=== PATIENT | male | born 1965 | race Caucasian/White ===

== ENCOUNTER 2017-12-05 16:08 | Observation (INO) | payer BC, OTHER ==
[~2017-12-05] VITALS: Ht 188 cm; Wt 115.0 kg
[2017-12-05] VITALS (7 sets, daily range): BP systolic 111–137; BP diastolic 69–82; PULSE 64–77; RESP 16–18; TEMP 97.6–98.1; O2SAT 97–99
[~2017-12-05 16:08] MED LIST: ASPI-516 CHEW; ATOR40TA16 PO; DAPA1TAB3 PO; DIABETIC SHOES; FURO1TAB62 PO; GABA300C5 PO; GEMF600T PO; GLUC1KIT IM; LISI-519 PO; METF1000 PO; NAPR-855 PO; NOVOINJ2 SQ; ONETTES4; VENTAER INH
[2017-12-05] MEDS ORDERED: ACETAMINOPHEN 500 MG CPLT PO ONE (18:15)
[2017-12-05] MEDS ORDERED: ASPIRIN 81 MG CHEW TAB PO ONE (18:15)
[2017-12-05] MEDS ORDERED: SODIUM CHLORIDE 0.9% FLUSH 10 ML FLUSH IVF PRN (18:15)
[2017-12-05] MEDS ORDERED: SODIUM CHLORID 0.9% 500 ML INJ 500 ML IV ONE (18:15)
[2017-12-05] MEDS ORDERED: NITROGLYCERIN 0.4 MG SL 25 TABS/BTL SL ONE (18:15)
[2017-12-05] MEDS ORDERED: NOVOLOGMXP SQ (18:22)
[2017-12-05] MEDS ORDERED: NOVOLOGP2 SQ (18:22)
--- NOTE | 2017-12-05 18:27 | PD ---
HPI Chief Complaint: Chest Pain Time Seen by Provider: 18:04 Travel History International Travel<30 days: No Contact w/Intl Traveler<30days: No Traveled to known affect area: No History of Present Illness HPI 52-year-old male with history of diabetes and hyperlipidemia presents to the emergency department complaining of midsternal chest pain that radiates to the right arm since approximately 2 PM this afternoon. Says he also developed a diffuse headache rated 6/10 in severity. Says he felt "warm and sweaty" when this chest pain started as well. Patient describes the pain as a dull ache, constant without palliative or provocative factors. States that he has not been active since the onset because of the chest pain. States that he has had occasional shortness of breath associated with this chest pain denies nausea or vomiting. 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 His last follow- up was August 2017 where he had an echocardiogram. Says he had a stress test approximately 2 years ago that demonstrated abnormal valves. Denies numbness, tingling, or weakness. PFSH Past Medical History Heart Rhythm Problems: No Cancer: No Cardiac Catheterization: No Cardiovascular Problems: Yes High Cholesterol: Yes Congestive Heart Failure: No Diabetes: Yes Patient Takes Glucophage: Yes Endocrine: Yes Genitourinary: No Heparin Induced Thrombocytopen: No Hypertension: No Immune Disorder: No Implanted Vascular Access Dvce: No Musculoskeletal: No Neurologic: No Psychiatric: No Reproductive: No Respiratory: No Immunizations Current: Yes Pneumonia: Yes Triglycerides - High: Yes Tetanus Vaccination: > 5 Years Influenza Vaccination: No Past Surgical History Coronary Artery Bypass Graft: No Oral Surgery: Yes Family History Family Myocardial Infarction: Yes Family Hypercholesterolemia: Yes (BROTHER) Social History Alcohol Use: No (QUIT 1991) Tobacco Use: No (QUIT 1980) Substance Use: No Allergies-Medications (Allergen,Severity, Reaction): Coded Allergies: penicillin G (Unverified Allergy, Intermediate, Hives, 12/05/17) Hives all over his body Reported Meds & Prescriptions Reported Meds & Active Scripts Active Atorvastatin (Atorvastatin Calcium) 40 Mg Tab 40 Mg PO HS Gemfibrozil 600 Mg Tab 600 Mg PO BIDAC Take 30 minutes prior to breakfast and dinner. Metformin (Metformin HCl) 1,000 Mg Tab 1,000 Mg PO BIDPC With meals Lisinopril 5 Mg Tab 5 Mg PO DAILY Lasix (Furosemide) 20 Mg Tab 20 Mg PO DAILY PRN Reported Novolog Inj (Insulin Aspart) 1,000 Unit/10 Ml Vial 42 Units SQ DAILY Novolog Mix 70-30 Inj (Insulin Aspart Prota 70%/Aspart 30%) 1,000 Unit/10 Ml Vial 30 Units SQ DAILY Ventolin Hfa 18 GM Inh (Albuterol Sulfate) 90 Mcg/Act Aer 1 Puff INH Q4H PRN Aspirin 81 Mg Chew 81 Mg CHEW DAILY Glucagon Emergency Inj Kit (Glucagon (Rdna) Inj Kit) 1 Mg Kit 1 Mg IM ONCE PRN Gabapentin 300 Mg Cap 300 Mg PO DAILY Review of Systems Except as stated in HPI: all other systems reviewed are Neg Physical Exam Narrative GENERAL: Well-developed, well-nourished in no apparent distress SKIN: Focused skin assessment warm/dry. HEAD: Atraumatic. Normocephalic. EYES: Pupils equal and round. No scleral icterus. No injection or drainage. ENT: No nasal bleeding or discharge. Mucous membranes pink and moist. NECK: Trachea midline. No JVD. CARDIOVASCULAR: Regular rate and rhythm. No murmur appreciated. RESPIRATORY: No accessory muscle use. Clear to auscultation. Breath sounds equal bilaterally. GASTROINTESTINAL: Abdomen soft, non-tender, nondistended. Hepatic and splenic margins not palpable. MUSCULOSKELETAL: No obvious deformities. No clubbing. No cyanosis. No edema. NEUROLOGICAL: Awake and alert. No obvious cranial nerve deficits. Motor grossly within normal limits. Normal speech. PSYCHIATRIC: Appropriate mood and affect; insight and judgment normal. Data Data Last Documented VS Vital Signs Date Time Temp Pulse Resp B/P (MAP) Pulse Ox O2 Delivery O2 Flow Rate FiO2 12/05/17 19:30 64 18 111/69 (83) 99 Room Air 12/05/17 16:19 98.1 Orders Orders Electrocardiogram (12/05/17 ) Ckmb (Isoenzyme) Profile (12/05/17 18:14) Complete Blood Count With Diff (12/05/17 18:14) Comprehensive Metabolic Panel (12/05/17 18:14) Magnesium (Mg) (12/05/17 18:14) Prothrombin Time / Inr (Pt) (12/05/17 18:14) Act Partial Throm Time (Ptt) (12/05/17 18:14) Troponin I (12/05/17 18:14) Ecg Monitoring (12/05/17 18:14) Bilateral Bp Monitoring (12/05/17 18:14) Iv Access Insert/Monitor (12/05/17 18:14) Oximetry (12/05/17 18:14) Aspirin Chew (Aspirin Chew) (12/05/17 18:15) Sodium Chloride 0.9% Flush (Ns Flush) (12/05/17 18:15) Nitroglycerin Sl (Nitrostat Sl) (12/05/17 18:15) Sodium Chlorid 0.9% 500 Ml Inj (Ns 500 M (12/05/17 18:15) Chest, Pa & Lat (12/05/17 18:14) Acetaminophen (Tylenol) (12/05/17 18:15) Ibuprofen (Motrin) (12/05/17 20:15) Activity Bed Rest With Brp (12/05/17 20:06) Vital Signs (Adult) Q4H (12/05/17 20:06) Cardiac Rhythm .As Directed (12/05/17 20:06) Notify Dr: Other .PRN (12/05/17 20:06) Notify DrSri Parameters (12/05/17 20:06) Resp Oxygen Nasal Cannula (12/05/17 ) Ckmb (Isoenzyme) Profile (12/05/17 21:20) Ckmb (Isoenzyme) Profile (12/06/17 00:20) Troponin I (12/05/17 21:20) Troponin I (12/06/17 00:20) Electrocardiogram (12/05/17 21:20) Electrocardiogram (12/06/17 00:20) ^ Obtain (12/05/17 20:06) Airplane Flight Attendant Supervisor / Telemetry CRISTIAN.Q8H (12/05/17 20:06) Admit Order (Ed Use Only) (12/05/17 20:06) Labs Laboratory Tests Test 12/05/17 18:20 White Blood Count 6.1 TH/MM3 Red Blood Count 4.77 MIL/MM3 Hemoglobin 14.5 GM/DL Hematocrit 42.7 % Mean Corpuscular Volume 89.4 FL Mean Corpuscular Hemoglobin 30.5 PG Mean Corpuscular Hemoglobin Concent 34.1 % Red Cell Distribution Width 13.1 % Platelet Count 226 TH/MM3 Mean Platelet Volume 9.5 FL Neutrophils (%) (Auto) 58.3 % Lymphocytes (%) (Auto) 29.2 % Monocytes (%) (Auto) 9.4 % Eosinophils (%) (Auto) 2.6 % Basophils (%) (Auto) 0.5 % Neutrophils # (Auto) 3.6 TH/MM3 Lymphocytes # (Auto) 1.8 TH/MM3 Monocytes # (Auto) 0.6 TH/MM3 Eosinophils # (Auto) 0.2 TH/MM3 Basophils # (Auto) 0.0 TH/MM3 CBC Comment DIFF FINAL Differential Comment Prothrombin Time 10.3 SEC Prothromb Time International Ratio 1.0 RATIO Activated Partial Thromboplast Time 23.8 SEC Blood Urea Nitrogen 16 MG/DL Creatinine 1.00 MG/DL Random Glucose 140 MG/DL Total Protein 7.7 GM/DL Albumin 4.0 GM/DL Calcium Level 9.2 MG/DL Magnesium Level 1.9 MG/DL Alkaline Phosphatase 52 U/L Aspartate Amino Transf (AST/SGOT) 21 U/L Alanine Aminotransferase (ALT/SGPT) 43 U/L Total Bilirubin 0.6 MG/DL Sodium Level 138 MEQ/L Potassium Level 4.0 MEQ/L Chloride Level 105 MEQ/L Carbon Dioxide Level 25.6 MEQ/L Anion Gap 7 MEQ/L Estimat Glomerular Filtration Rate 78 ML/MIN Total Creatine Kinase 74 U/L Troponin I LESS THAN 0.02 NG/ML MDM Medical Decision Making Medical Screen Exam Complete: Yes Emergency Medical Condition: Yes Differential Diagnosis NSTEMI, angina, unstable angina, atypical chest pain Narrative Course 52y male presents to the ED c/o chest pain that started approximately 2p. Says he was sitting when this pain started. Patient says he is also developed a headache. Denies numbness or tingling, weakness. Vital signs are stable. EKG shows sinus rhythm at a rate of 68. Aspirin, nitro, and Tylenol administered. Patient says his headache has worsened after administration of nitro. CBC & BMP Diagram 12/05/17 18:20 Total Protein 7.7, Albumin 4.0, Calcium Level 9.2, Magnesium Level 1.9, Alkaline Phosphatase 52, Aspartate Amino Transf (AST/SGOT) 21, Alanine Aminotransferase (ALT/SGPT) 43, Total Bilirubin 0.6 Cardiac enzymes negative. Ordered ibuprofen 600 mg for patient's headache. Patient be admitted to the chest pain center with unstable angina, rule out ACS. Patient does have risk factors of diabetes, hyperlipidemia. He also has an extensive family history of heart disease. Once again he does follow cardiology and his last visit was in August 2017. Says he had an echocardiogram in August which demonstrated abnormal heart valves, according to pt. Diagnosis Primary Impression: Unstable angina Admitting Information Admitting Physician Requests: Observation Condition: Stable Nickie Canales Dec 05, 2017 18:27
--- NOTE | 2017-12-05 19:11 | RADRPT ---
EXAM DATE/TIME: 12/05/2017 18:31 [facility] COMPARISON: No previous studies available for comparison. INDICATIONS : Chest pain. MEDICAL HISTORY : None. SURGICAL HISTORY : None. ENCOUNTER: Initial ACUITY: 1 day PAIN SCORE: 7/10 LOCATION: Bilateral chest FINDINGS: PA and lateral views of the chest demonstrate the lungs to be symmetrically aerated without evidence of mass, infiltrate or effusion. The cardiomediastinal contours are unremarkable. Osseous structure s are intact. CONCLUSION: No acute disease. Asael Valdez MD FACR on December 05, 2017 at 19:08 Board Certified Radiologist. This report was verified electronically.
[2017-12-05 19:14] LABS: AUTOMATED NEUTROPHIL # 3.6 TH/MM3 (1.8-7.7); BASOPHIL % 0.5 % (0.0-2.0); EOSINOPHIL # 0.2 TH/MM3 (0-0.4); EOSINOPHIL % 2.6 % (0.0-4.0); HEMATOCRIT 42.7 % (39.0-51.0); HEMOGLOBIN 14.5 GM/DL (13.0-17.0); LYMPH % 29.2 % (9.0-44.0); LYMPHOCYTE # 1.8 TH/MM3 (1.0-4.8); MEAN CELL VOLUME 89.4 FL (80.0-100.0); MEAN CORPUSCULAR HEMOGLOBIN 30.5 PG (27.0-34.0); MEAN CORPUSCULAR HGB CONC 34.1 % (32.0-36.0); MEAN PLATELET VOLUME 9.5 FL (7.0-11.0); MONO % 9.4 % (0.0-8.0); MONOCYTE # 0.6 TH/MM3 (0-0.9); NEUT % 58.3 % (16.0-70.0); PLATELET COUNT 226 TH/MM3 (150-450); RED BLOOD COUNT 4.77 MIL/MM3 (4.50-5.90); RED CELL DISTRIBUTION WIDTH 13.1 % (11.6-17.2); WHITE BLOOD COUNT 6.1 TH/MM3 (4.0-11.0)
[2017-12-05 19:17] LABS: PROTHROMBIN TIME - PATIENT 10.3 SEC (9.8-11.6)
[2017-12-05 19:45] LABS: AST (GOT) 21 U/L (15-37); BICARBONATE 25.6 MEQ/L (21.0-32.0); BLOOD UREA NITROGEN 16 MG/DL (7-18); CALCIUM 9.2 MG/DL (8.5-10.1); CHLORIDE 105 MEQ/L (98-107); GLOMERULAR FILTRATION RATE 78 ML/MIN (>89); GLUCOSE,RANDOM 140 MG/DL (74-106); MAGNESIUM 1.9 MG/DL (1.5-2.5); SODIUM (NA) 138 MEQ/L (136-145)
[2017-12-05 19:46] LABS: ALT (GPT) 43 U/L (12-78)
[2017-12-05 19:50] LABS: ALKALINE PHOSPHATASE 52 U/L (45-117); TOTAL BILIRUBIN ADULT 0.6 MG/DL (0.2-1.0); TOTAL PROTEIN 7.7 GM/DL (6.4-8.2); TROPONIN I LESS THAN 0.02 NG/ML (0.02-0.05)
[2017-12-05] MEDS ORDERED: IBUPROFEN 600 MG TAB PO ONE (20:15)
[2017-12-05 22:44] LABS: TROPONIN I LESS THAN 0.02 NG/ML (0.02-0.05)
[2017-12-06 00:39] VITALS: BP 115/72; PULSE 61; RESP 16; TEMP 97.7; O2SAT 98
[2017-12-06 01:00] LABS: TROPONIN I LESS THAN 0.02 NG/ML (0.02-0.05)
[2017-12-06 03:27] VITALS: BP 113/72; PULSE 69; RESP 18; TEMP 97.5; O2SAT 98
[2017-12-06 07:05] VITALS: PULSE 61
[2017-12-06 08:00] VITALS: BP 121/76; PULSE 60; RESP 18; TEMP 97.5; O2SAT 98
[2017-12-06] MEDS ORDERED: ACETAMINOPHEN 500 MG CPLT PO PRN (08:00)
[2017-12-06] MEDS ORDERED: ONDANSETRON HCL 4 MG/2 ML VIAL IV PUSH PRN (08:00)
[2017-12-06] MEDS ORDERED: NITROGLYCERIN 0.4 MG SL 25 TABS/BTL SL PRN (08:00)
[2017-12-06] MEDS ORDERED: SODIUM CHLORIDE 0.9% FLUSH 10 ML FLUSH IV FLUSH SCH (09:00)
[2017-12-06] MEDS ORDERED: ASPIRIN 325 MG TAB PO SCH (09:00)
--- NOTE | 2017-12-06 09:58 | HHI.HP ---
HPI Primary Care Physician Unknown Chief Complaint Chest pain History of Present Illness 52 year old male with history of insulin dependent type II diabetes and hyperlipidemia presents to ER for further evaluation of chest pain. Onset yesterday 2pm. Location upper chest. Characterized as "dull pain." Severity 7/ 10. Radiation to right shoulder and arm until right elbow. Duration constant. No associated symptoms of nausea, vomiting, dyspnea, or diaphorases. No known precipitating or relieving factors. Endorses chest discomfort in the past, unsure if similar to presenting symptoms. Review of Systems General: No fatigue,weakness, fever, chills, recent illness, or change in appetite. Has been in his general state of health. HEENT: No ADAME, no vision changes, no nasal congestion or drainage, no dysphasia CV: Continues to have chest pain as stated above. Current pain scale rated at 3 /10. RESP: No SOB, cough, wheeze, or recent URI. GI: No nausea, vomiting, bowel changes, diarrhea, constipation, pain, distention , melena, or blood in the stool. : No dysuria, urgency, frequency EXT: No lower leg edema, bilateral lower extremity neuropathy. MS: No discomfort, injury, trauma, or change in ROM NEURO: No dizziness, difficulty with balance, LOC, motor/sensory deficits PSYCH: No anxiety, depression SKIN: No rashes, no concerning lesions Past Family Social History Allergies: Coded Allergies: penicillin G (Unverified Allergy, Intermediate, Hives, 12/05/17) Hives all over his body Past Medical History Insulin-dependent type 2 diabetic, hyperlipidemia, chronic left shoulder pain, neuropathy, x2 left ankle fracture, x2 right ankle fracture Reported Medications Reported Meds & Active Scripts Active Atorvastatin (Atorvastatin Calcium) 40 Mg Tab 40 Mg PO HS Gemfibrozil 600 Mg Tab 600 Mg PO BIDAC Take 30 minutes prior to breakfast and dinner. Metformin (Metformin HCl) 1,000 Mg Tab 1,000 Mg PO BIDPC With meals Lisinopril 5 Mg Tab 5 Mg PO DAILY Lasix (Furosemide) 20 Mg Tab 20 Mg PO DAILY PRN Reported Novolog Inj (Insulin Aspart) 1,000 Unit/10 Ml Vial 42 Units SQ DAILY Novolog Mix 70-30 Inj (Insulin Aspart Prota 70%/Aspart 30%) 1,000 Unit/10 Ml Vial 30 Units SQ DAILY Ventolin Hfa 18 GM Inh (Albuterol Sulfate) 90 Mcg/Act Aer 1 Puff INH Q4H PRN Aspirin 81 Mg Chew 81 Mg CHEW DAILY Glucagon Emergency Inj Kit (Glucagon (Rdna) Inj Kit) 1 Mg Kit 1 Mg IM ONCE PRN Gabapentin 300 Mg Cap 300 Mg PO DAILY Active Ordered Medications Current Medications Medications (Trade) Dose Ordered Sig/Justyn Route Start Time Stop Time Status Last Admin (NS Flush) 2 ml UNSCH PRN IVF 12/05/17 18:15 12/06/17 07:58 (NS Flush) 2 ml BID IV FLUSH 12/06/17 09:00 (Tylenol) 500 mg Q4H PRN PO 12/06/17 08:00 (Zofran Inj) 4 mg Q6H PRN IV PUSH 12/06/17 08:00 (Nitrostat Sl) 0.4 mg Q5M PRN SL 12/06/17 08:00 (Aspirin) 325 mg DAILY PO 12/06/17 09:00 12/06/17 08:37 Family History Positive for early onset cardiovascular disease. Father age 44 from heart attack, Prior to his required CABG 2 Social History Known diabetes and hyperlipidemia. No known coronary artery disease for hypertension. Former smoker quitting in 1980. Denies any alcohol use. . Endorses sedentary lifestyle. Past cardiac testing 04/18/16 Lexiscan-unremarkable. EF 67% 11/19/15 Lexiscan-Conclusion Questionable reperfusion throughout the myocardium at rest when compared to stress without evidence of focal fixed or reversible perfusion abnormality. Consideration should be given to CTA of the coronary arteries to exclude significant coronary disease. Normal wall motion and ejection fraction. Physical Exam Vital Signs Vital Signs Date Time Temp Pulse Resp B/P (MAP) Pulse Ox O2 Delivery O2 Flow Rate FiO2 12/06/17 08:00 97.5 60 18 121/76 (91) 98 12/06/17 07:05 61 12/06/17 03:27 97.5 69 18 113/72 (86) 98 12/06/17 00:39 97.7 61 16 115/72 (86) 98 12/05/17 21:22 69 12/05/17 20:54 97.6 64 16 116/75 (89) 99 12/05/17 20:54 12/05/17 20:27 98 Nasal Cannula 2.00 12/05/17 19:30 64 18 111/69 (83) 99 Room Air 12/05/17 19:30 64 14 2 Nasal Cannula 12/05/17 18:25 68 18 119/75 (90) 98 Room Air 12/05/17 18:25 68 18 119/76 (90) 98 Room Air 12/05/17 18:13 Room Air 12/05/17 18:01 71 17 115/73 (87) 97 Room Air 12/05/17 18:01 77 17 115/73 (87) 99 Room Air 12/05/17 16:19 98.1 73 16 137/82 (100) 97 Physical Exam GENERAL: Alert WN, WD, NAD, pleasant, male HEAD: NC, AT EYES: Sclera clear, conjunctiva without injection ENT: Mucous membranes pink and moist NECK: Supple, no masses, trachea midline CV: RRR, without murmur, rub, gallop, no JVD, S1-S2 no S3-S4. No carotid bruits. RESP: Clear lungs throughout bilateral, no crackles, wheeze, rhonchi, symmetrical chest rise, nonlabored, able to speak in full sentences ABD: Soft, NT, ND, no masses, positive bowel tones EXT: Pulses +2x4, no dependent edema MS: Normal tone x4 extremities, nontender, no obvious deformities, full range of motion NEURO: CN II through CN XII grossly intact, motor strength 5/5 PSYCH: A+O x3, pleasant affect, appropriate speech, mood, insight and judgment SKIN: Normal turgor, normal texture, no lesions, no rashes, brisk cap refill, even hair distribution Laboratory Laboratory Tests Test 12/05/17 18:20 12/05/17 21:30 12/06/17 00:28 White Blood Count 6.1 Red Blood Count 4.77 Hemoglobin 14.5 Hematocrit 42.7 Mean Corpuscular Volume 89.4 Mean Corpuscular Hemoglobin 30.5 Mean Corpuscular Hemoglobin Concent 34.1 Red Cell Distribution Width 13.1 Platelet Count 226 Mean Platelet Volume 9.5 Neutrophils (%) (Auto) 58.3 Lymphocytes (%) (Auto) 29.2 Monocytes (%) (Auto) 9.4 Eosinophils (%) (Auto) 2.6 Basophils (%) (Auto) 0.5 Neutrophils # (Auto) 3.6 Lymphocytes # (Auto) 1.8 Monocytes # (Auto) 0.6 Eosinophils # (Auto) 0.2 Basophils # (Auto) 0.0 CBC Comment DIFF FINAL Differential Comment Prothrombin Time 10.3 Prothromb Time International Ratio 1.0 Activated Partial Thromboplast Time 23.8 Blood Urea Nitrogen 16 Creatinine 1.00 Random Glucose 140 Total Protein 7.7 Albumin 4.0 Calcium Level 9.2 Magnesium Level 1.9 Alkaline Phosphatase 52 Aspartate Amino Transf (AST/SGOT) 21 Alanine Aminotransferase (ALT/SGPT) 43 Total Bilirubin 0.6 Sodium Level 138 Potassium Level 4.0 Chloride Level 105 Carbon Dioxide Level 25.6 Anion Gap 7 Estimat Glomerular Filtration Rate 78 Total Creatine Kinase 74 69 57 Troponin I LESS THAN 0.02 LESS THAN 0.02 LESS THAN 0.02 Result Diagram: 12/05/17181912/05/171819 Imaging Last 48 hours Impressions Myocardial Perfusion Scan Nuc Med 12/06/17 0000 Signed Impressions: Service Date/Time: Wednesday, December 06, 2017 11:45 - CONCLUSION: No evidence of fixed or reversible perfusion abnormalities. Well-maintained wall motion and normal ejection fraction. RISK CATEGORY: Low (<1%% Annual Mortality Rate) Maurice Martin MD Chest X-Ray 12/05/171813 Signed Impressions: Service Date/Time: Tuesday, December 05, 2017 18:31 - CONCLUSION: No acute disease. Asael Valdez MD FACR Course EKG NSR, no st t changes Caprini VTE Risk Assessment Caprini VTE Risk Assessment: No/Low Risk (score <= 1) Caprini Risk Assessment Model Point Value = 1 Point Value = 2 Point Value = 3 Point Value = 5 Age 41-60 Minor surgery BMI > 25 kg/m2 Swollen legs Varicose veins or History of unexplained or recurrent spontaneous Oral contraceptives or hormone replacement Sepsis (< 1 month) Serious lung disease, including pneumonia (< 1 month) Abnormal pulmonary function Acute myocardial infarction Congestive heart failure (< 1 month) History of inflammatory bowel disease Medical patient at bed rest Age 61-74 Arthroscopic surgery Major open surgery (> 45 min) Laparoscopic surgery (> 45 min) Malignancy Confined to bed (> 72 hours) Immobilizing plaster cast Central venous access Age >= 75 History of VTE Family history of VTE Factor V Leiden Prothrombin [id number] Lupus anticoagulant Anticardiolipin antibodies Elevated serum homocysteine Heparin-induced thrombocytopenia Other congenital or acquired thrombophilia Stroke (< 1 month) Elective arthroplasty Hip, pelvis, or leg fracture Acute spinal cord injury (< 1 month) Prophylaxis Regimen Total Risk Factor Score Risk Level Prophylaxis Regimen 0-1 Low Early ambulation 2 Moderate Order ONE of the following: *Sequential Compression Device (SCD) *Heparin 5000 units SQ BID 3-4 Higher Order ONE of the following medications: *Heparin 5000 units SQ TID *Enoxaparin/Lovenox 40 mg SQ daily (WT < 150 kg, CrCl > 30 mL/min) *Enoxaparin/Lovenox 30 mg SQ daily (WT < 150 kg, CrCl > 10-29 mL/min) *Enoxaparin/Lovenox 30 mg SQ BID (WT < 150 kg, CrCl > 30 mL/min) AND/OR *Sequential Compression Device (SCD) 5 or more Highest Order ONE of the following medications: *Heparin 5000 units SQ TID (Preferred with Epidurals) *Enoxaparin/Lovenox 40 mg SQ daily (WT < 150 kg, CrCl > 30 mL/min) *Enoxaparin/Lovenox 30 mg SQ daily (WT < 150 kg, CrCl > 10-29 mL/min) *Enoxaparin/Lovenox 30 mg SQ BID (WT < 150 kg, CrCl > 30 mL/min) AND *Sequential Compression Device (SCD) Assessment and Plan Assessment and Plan #1 Atypical chest pain-admitted to chest pain center. Ruled out with 3 sets of EKGs and cardiac enzymes. Seen and evaluated by Dr. Burton. Proceed with Anjel this am. If unremarkable, plans to be discharged home with follow-up with primary care provider. Patient agreeable plan of care. #2 History of type II diabetes-hold Metformin, begin low dose SSI #3 History of hyperlipidemia-continue atorvastatin Kaylee Matthews Dec 06, 2017 09:58
[2017-12-06] MEDS ORDERED: DEXTROSE 50% IN WATER 50 ML VIAL(D50) IV PUSH PRN (10:30)
[2017-12-06] MEDS ORDERED: GLUCAGON 1 MG/ML VIAL OTHER PRN (10:30)
[2017-12-06] MEDS ORDERED: LISINOPRIL 5 MG TAB PO SCH (11:00)
[2017-12-06] MEDS ORDERED: GABAPENTIN 300 MG CAP PO SCH (11:00)
[2017-12-06] MEDS ORDERED: REGADENOSON INJ 0.4 MG/5 ML SYR ONE (11:54)
[2017-12-06] MEDS ORDERED: INSULIN ASPART SUPPLEMENTAL SCALE SQ SCH (12:00)
--- NOTE | 2017-12-06 12:38 | EKG ---
Date Performed: 12/05/2017 Time Performed: 22:21:10 PTAGE: 52 years EKG: Sinus rhythm NORMAL ECG PREVIOUS TRACING : 12/05/2017 16.28 Since previous tracing, no significant change noted DOCTOR: Kenn Burton Interpretating Date/Time 12/06/2017 12:38:04
--- NOTE | 2017-12-06 12:38 | EKG ---
Date Performed: 12/05/2017 Time Performed: 23:43:08 PTAGE: 52 years EKG: Sinus rhythm NORMAL ECG PREVIOUS TRACING : 12/05/2017 22.21 Since previous tracing, no significant change noted DOCTOR: Kenn Burton Interpretating Date/Time 12/06/2017 12:37:32
--- NOTE | 2017-12-06 12:42 | EKG ---
Date Performed: 12/05/2017 Time Performed: 16:28:35 PTAGE: 52 years EKG: Sinus rhythm NORMAL ECG PREVIOUS TRACING : 04/17/2016 23.28 Since previous tracing, no significant change noted DOCTOR: Kenn Burton Interpretating Date/Time 12/06/2017 12:41:44
[2017-12-06 13:06] VITALS: BP 120/72; PULSE 68; RESP 18; O2SAT 96
[2017-12-06 13:21] VITALS: TEMP 97.6
--- NOTE | 2017-12-06 13:33 | RADRPT ---
EXAM DATE/TIME: 12/06/2017 11:45 [facility] COMPARISON: No previous studies available for comparison. INDICATIONS : Chest pain. Angina. DOSE: 35.0 mCi Tc99m Myoview at stress. 11.0 mCi Tc99m Myoview at rest. 0.4 mg Lexiscan STRESS SYMPTOMS: Shortness of breath. EJECTION FRACTION: 63% MEDICAL HISTORY : Hypertension. Hypercholesterolemia. Diabetes mellitus type 2. SURGICAL HISTORY : Rotator cuff, left. ENCOUNTER: Initial ACUITY: 2 days PAIN SCALE: 6/10 LOCATION: Bilateral chest TECHNIQUE: The patient underwent pharmacologic stress with infusion of prescribed dose. Continuous ECG tracing was monitored during stress. Gated SPECT imaging was performed after stress and conventional SPECT i maging was performed at rest. The examination was performed on a SPECT/CT scanner, both attenuation and non-corrected datasets were reviewed. FINDINGS: DISTRIBUTION: The maximum perfused segment at stress is in the anterior wall. PERFUSION STUDY: The pattern of perfusion at stress is within normal limits. GATED STUDY: There is intact wall motion and thickening without hypokinetic or dyskinetic segments. CONCLUSION: No evidence of fixed or reversible perfusion abnormalities. Well-maintained wall motion and normal ejection fraction. RISK CATEGORY: Low (<1% Annual Mortality Rate) Maurice Martin MD on December 06, 2017 at 13:30 Board Certified Radiologist. This report was verified electronically.
--- NOTE | 2017-12-06 13:45 | HHI.DCPOC ---
Discharge Care Plan Diagnosis: (1) Atypical chest pain (2) Diabetes mellitus with neuropathy (3) Mixed dyslipidemia Goals to Promote Your Health * To prevent worsening of your condition and complications * To maintain your health at the optimal level Directions to Meet Your Goals Take your medications as prescribed Follow your dietary instruction Follow activity as directed Keep your appointments as scheduled Take your immunizations and boosters as scheduled If your symptoms worsen call your PCP, if no PCP go to Urgent Care Center or Emergency Room Smoking is Dangerous to Your Health. Avoid second hand smoke Call the 24-hour hour crisis hotline for domestic abuse at Kaylee MatthewsP Dec 06, 2017 13:45
--- NOTE | 2017-12-06 15:38 | TR ---
Date Performed: 12/06/2017 Time Performed: 12:09:11 DOCTOR: Kenn Burton DRUG LIST: CLINICAL HISTORY: ANGINA REASON FOR TEST: REASON FOR ENDING: OBSERVATION: CONCLUSION: Lexiscan stress test was performed under standard four minute protocol. Radionuclid e was injected one minute prior to ending the test. No electrocardiographic abormalities were present to suggest ischemia. Nuclear imaging and interpretation are pending. COMMENTS:
[2017-12-06] MEDS ORDERED: ATORVASTATIN 40 MG TAB PO SCH (21:00)
== END 2017-12-06 18:34 | disposition home or self-care (01) ==
LOC: NEPC 16:08 → NEDA 20:09 → NEPFCDU 20:41
PROVIDERS: ADMIT Internal Medicine Interventional Cardiology; ATTEND Internal Medicine Interventional Cardiology
DX: I20.0 Unstable angina (principal); E11.40 Type 2 diabetes mellitus with diabetic neuropathy, unspecified; E78.2 Mixed hyperlipidemia; I10 Essential (primary) hypertension; Z79.4 Long term (current) use of insulin; Z82.49 Family history of ischemic heart disease and other diseases of the circulatory system; Z87.891 Personal history of nicotine dependence
CPT/HCPCS: 71046; 78452; 80053; 82550; 82948; 83735; 84484; 85025; 85610; 85730; 93005; 93017; 99285; A9502; G0378; J1815; J2785; J7040

== ENCOUNTER 2017-12-17 18:28 | Emergency (ER) | payer BC ==
[~2017-12-17] VITALS: Ht 188 cm; Wt 117.0 kg
[~2017-12-17 18:28] MED LIST changes: -DAPA1TAB3 PO; -DIABETIC SHOES; -NAPR-855 PO; -NOVOINJ2 SQ; +NOVOLOGMXP SQ; +NOVOLOGP2 SQ; -ONETTES4
[2017-12-17 18:46] VITALS: BP 137/86; PULSE 104; RESP 18; TEMP 98.2
--- NOTE | 2017-12-17 19:01 | PD ---
HPI Chief Complaint: Foreign Body Time Seen by Provider: 18:50 Travel History International Travel<30 days: No Contact w/Intl Traveler<30days: No Traveled to known affect area: No History of Present Illness HPI Type II diabetic on insulin presents emergency department with question of possible foreign body from an insulin needle in his anterior abdomen. Patient states he gives throughout this morning and felt that the needle was shorter than this was supposed to when he withdrew it. He is unsure which side he gave himself his insulin shot this morning. He has no specific areas of pain. He is just concerned that he may have a broken needle in his skin of the abdomen. He is allergic to penicillin. PFSH Past Medical History Heart Rhythm Problems: No Cancer: No Cardiac Catheterization: No Cardiovascular Problems: Yes High Cholesterol: Yes Congestive Heart Failure: No Diabetes: Yes Endocrine: Yes Genitourinary: No Heparin Induced Thrombocytopen: No Hypertension: No Immune Disorder: No Implanted Vascular Access Dvce: No Musculoskeletal: No Neurologic: No Psychiatric: No Reproductive: No Respiratory: No Immunizations Current: Yes Pneumonia: Yes Triglycerides - High: Yes Past Surgical History Coronary Artery Bypass Graft: No Oral Surgery: Yes Family History Family Hypercholesterolemia: Yes (BROTHER) Social History Alcohol Use: No (QUIT 1991) Tobacco Use: No (QUIT 1980) Substance Use: No Allergies-Medications (Allergen,Severity, Reaction): Coded Allergies: penicillin G (Unverified Allergy, Intermediate, Hives, 12/05/17) Hives all over his body Reported Meds & Prescriptions Reported Meds & Active Scripts Active Atorvastatin (Atorvastatin Calcium) 40 Mg Tab 40 Mg PO HS Gemfibrozil 600 Mg Tab 600 Mg PO BIDAC Take 30 minutes prior to breakfast and dinner. Metformin (Metformin HCl) 1,000 Mg Tab 1,000 Mg PO BIDPC With meals Lisinopril 5 Mg Tab 5 Mg PO DAILY Lasix (Furosemide) 20 Mg Tab 20 Mg PO DAILY PRN Reported Novolog Inj (Insulin Aspart) 1,000 Unit/10 Ml Vial 42 Units SQ DAILY Novolog Mix 70-30 Inj (Insulin Aspart Prota 70%/Aspart 30%) 1,000 Unit/10 Ml Vial 30 Units SQ DAILY Ventolin Hfa 18 GM Inh (Albuterol Sulfate) 90 Mcg/Act Aer 1 Puff INH Q4H PRN Aspirin 81 Mg Chew 81 Mg CHEW DAILY Glucagon Emergency Inj Kit (Glucagon (Rdna) Inj Kit) 1 Mg Kit 1 Mg IM ONCE PRN Gabapentin 300 Mg Cap 300 Mg PO DAILY Review of Systems Except as stated in HPI: all other systems reviewed are Neg General / Constitutional: No: Fever Eyes: No: Visual changes HENT: No: Headaches Cardiovascular: No: Chest Pain or Discomfort Respiratory: No: Shortness of Breath Gastrointestinal: No: Abdominal Pain Genitourinary: No: Dysuria Musculoskeletal: No: Pain Skin: No Rash Neurologic: No: Weakness Psychiatric: No: Depression Endocrine: No: Polydipsia Hematologic/Lymphatic: No: Easy Bruising Physical Exam Narrative GENERAL: Moderately obese male in no acute distress per SKIN: Warm and dry. Normal color. Normal turgor. No obvious areas of erythema to the anterior abdomen HEAD: Atraumatic. Normocephalic. EYES: Pupils equal and round. No scleral icterus. No injection or drainage. ENT: No nasal bleeding or discharge. Mucous membranes pink and moist. NECK: Trachea midline. Supple and nontender per CARDIOVASCULAR: Regular rate and rhythm. RESPIRATORY: No accessory muscle use. Clear to auscultation. Breath sounds equal bilaterally. GASTROINTESTINAL: Abdomen soft, non-tender, nondistended. Hepatic and splenic margins not palpable. No specific point tenderness. MUSCULOSKELETAL: Extremities without clubbing, cyanosis, or edema. No obvious deformities. NEUROLOGICAL: Awake and alert. No obvious cranial nerve deficits. Motor grossly within normal limits. Five out of 5 muscle strength in the arms and legs. Normal speech. PSYCHIATRIC: Appropriate mood and affect; insight and judgment normal. Data Data Last Documented VS Vital Signs Date Time Temp Pulse Resp B/P (MAP) Pulse Ox O2 Delivery O2 Flow Rate FiO2 12/17/17 18:46 98.2 104 18 137/86 (103) Orders Orders Abdomen, Kub Only (12/17/17 18:54) [facility] Medical Decision Making Medical Screen Exam Complete: Yes Emergency Medical Condition: Yes Differential Diagnosis Type II diabetic on insulin. Possible broken needle. Possible foreign body in the anterior abdomen. Narrative Course KUB of the abdomen is ordered to identify possible foreign body. X-ray shows no foreign body per radiologist. Patient is medically cleared and reassured. Diagnosis Primary Impression: Foreign body in soft tissue Additional Impression: Disease ruled out after examination Patient Instructions: General Instructions Additional Instructions: X-ray shows no foreign body per radiologist. Patient is medically cleared and reassured. Med/Other Pt SpecificInfo: No Meds Exist/No RX given Disposition: 01 DISCHARGE HOME Condition: Stable Blu Duarte Dec 17, 2017 19:01
--- NOTE | 2017-12-17 19:24 | RADRPT ---
EXAM DATE/TIME: 12/17/2017 19:08 [place] COMPARISON: No previous studies available for comparison. INDICATIONS : Evaluate for foreign body. Patient had an insulin needle break off in the anterior abdomen. Patient unsure of which side. MEDICAL HISTORY : Hypertension. Hypercholesterolemia. Diabetes mellitus type 2. SURGICAL HISTORY : Rotator cuff, left. ENCOUNTER: Initial ACUITY: 1 day PAIN SCORE: 0/10 LOCATION: Anterior lower abdomen. FINDINGS: Supine view of the abdomen was performed. The abdominal bowel gas pattern is normal. No abnormal ma sses, calcifications, or organomegaly is seen. The osseous structures are unremarkable. No definite foreign body CONCLUSION: Normal examination. Saulo Lopez MD on December 17, 2017 at 19:20 Board Certified Radiologist. This report was verified electronically.
== END 2017-12-17 19:42 | disposition home or self-care (01) ==
LOC: NEPK 18:28
DX: Z03.89 Encounter for observation for other suspected diseases and conditions ruled out (principal); E11.9 Type 2 diabetes mellitus without complications; Z79.4 Long term (current) use of insulin
CPT/HCPCS: 74018; 99283